=== PATIENT | male | born 1980 | race African-American/Black ===

== ENCOUNTER 2022-10-11 10:05 | Emergency (ER) | payer SELFPAY ==
[2022-10-11] MEDS ORDERED: Aspirin Chewable 81 MG TAB ONE (10:27)
[2022-10-11 10:40] LABS: #Basophils 0.1 thou/uL (0.0-0.2); #Eosinphils 0.2 thou/uL (0.0-0.7); #Monocytes 0.8 thou/uL (0.11-0.59); #Neutrophils 5.3 thou/uL (1.40-6.50); %Basophils 0.7 % (0.0-1.0); %Eosinophils 2.1 % (0.0-10.0); %Lymphocytes 33.3 % (21.0-51.0); %Monocytes 8.5 % (0.0-10.0); %Neutrophils 55.2 % (42.0-75.0); Hemoglobin 14.3 g/dL (14.0-18.0); Mean Corpuscular HGB CONC 32.6 g/dL (32.0-36.0); Mean Corpuscular Hemoglobin 27.8 pg (27.0-31.0); Mean Corpuscular Volume 85.2 fl (78.0-98.0); Mean Platelet Volume 11.7 fL (7.4-10.4); Platelet Count 272 10x3/uL (130-400); RBC Distribution Width 13.2 % (11.5-14.5); Red Blood Cell (RBC) Count 5.14 mill/uL (4.70-6.10); White Blood Cell (WBC) Count 9.5 10x3/uL (4.8-10.8)
[2022-10-11 11:21] LABS: ALT (SGPT) 22 U/L (8-55); AST (SGOT) 23 U/L (5-34); Albumin 4.2 g/dL (3.5-5.0); Alkaline Phosphatase 108 U/L (40-110); Anion Gap 12 mmol/L (10-20); BUN (Urea Nitrogen) 11 mg/dL (8.9-20.6); Bilirubin, Total 0.8 mg/dL (0.2-1.2); Calc. Creatinine Clearance 0 mL/min (70-130); Calcium 9.3 mg/dL (7.6-10.4); Carbon Dioxide 21 mmol/L (22-29); Chloride 106 mmol/L (98-107); Estimated GFR 91; Glucose 124 mg/dL (70-105); Potassium 4.2 mmol/L (3.5-5.1); Protein, Total 7.2 g/dL (6.0-8.3); Sodium 135 mmol/L (136-145)
== END 2022-10-11 12:08 | disposition home or self-care (01) ==
LOC: ERS 10:05
DX: R06.02 Shortness of breath (principal); I50.9 Heart failure, unspecified; F17.210 Nicotine dependence, cigarettes, uncomplicated
CPT/HCPCS: 36415; 71045; 80053; 83735; 83880; 84484; 85025; 93005

== ENCOUNTER 2022-10-14 10:58 | Emergency (ER) | payer SELFPAY ==
[2022-10-14] MEDS ORDERED: Iopamidol-370 76% 500 ML MDV (1 ML CHARGE) ONE (11:14)
[2022-10-14] MEDS ORDERED: Ondansetron PF 4 MG/2 ML Vial ONE (12:08)
[2022-10-14] MEDS ORDERED: Ketorolac Tromethamine 30 MG/ML VIAL ONE (12:08)
[2022-10-14] MEDS ORDERED: Aspirin Chewable 81 MG TAB ONE (12:08)
[2022-10-14 12:24] LABS: Hemoglobin 15.3 g/dL (14.0-18.0); Mean Corpuscular HGB CONC 32.8 g/dL (32.0-36.0); Mean Corpuscular Volume 85.3 fl (78.0-98.0); Mean Platelet Volume 11.8 fL (7.4-10.4); Platelet Count 281 10x3/uL (130-400); RBC Distribution Width 13.5 % (11.5-14.5); Red Blood Cell (RBC) Count 5.46 mill/uL (4.70-6.10); White Blood Cell (WBC) Count 9.4 10x3/uL (4.8-10.8)
[2022-10-14 12:27] LABS: Delete Auto Diff?? YES; Manual Diff?? YES
[2022-10-14 12:49] LABS: CellaVision Operator ID LAB.GE; Eosinophils 2 % (0-10); Lymphocytes 32 % (21-51); Monocytes 5 % (0-10); Neutrophil 50 % (42-75); Platelet Adequacy Comment Platelets Normal; Polychromasia SLIGHT = 2-3 cells HPF (0-2); Reactive Lymphocytes 10 % (0-10); Total Cell Count 100
[2022-10-14 12:58] LABS: ALT (SGPT) 22 U/L (8-55); AST (SGOT) 25 U/L (5-34); Albumin 4.4 g/dL (3.5-5.0); Alkaline Phosphatase 108 U/L (40-110); Anion Gap 9 mmol/L (10-20); BUN (Urea Nitrogen) 10 mg/dL (8.9-20.6); Bilirubin, Total 0.6 mg/dL (0.2-1.2); CK (CPK) 297 U/L (30-200); Calc. Creatinine Clearance 0 mL/min (70-130); Calcium 9.8 mg/dL (7.8-10.44); Carbon Dioxide 29 mmol/L (22-29); Chloride 104 mmol/L (98-107); Estimated GFR 83; Globulin 3.3 g/dL (2.4-3.5); Glucose 81 mg/dL (70-105); Lipase 67 U/L (8-78); Potassium 4.1 mmol/L (3.5-5.1); Protein, Total 7.7 g/dL (6.0-8.3); Sodium 138 mmol/L (136-145)
== END 2022-10-14 13:51 | disposition home or self-care (01) ==
LOC: ERS 10:58
DX: K21.01 Gastro-esophageal reflux disease with esophagitis, with bleeding (principal); I11.0 Hypertensive heart disease with heart failure; I50.9 Heart failure, unspecified; F17.210 Nicotine dependence, cigarettes, uncomplicated; Z79.899 Other long term (current) drug therapy
CPT/HCPCS: 71045; 74177; 80053; 82550; 83690; 84484; 85025; 93005; 96361; 96374; 96375; J1885; J2405; Q9967

== ENCOUNTER 2022-10-16 17:42 | Observation (INO) | payer SELFPAY ==
[2022-10-16] MEDS ORDERED: Nitroglycerin 2% Ointment 1 INCH/1 GM Packet ONE (18:25)
[2022-10-16 18:51] LABS: Hemoglobin 13.6 g/dL (14.0-18.0); Mean Corpuscular HGB CONC 33.1 g/dL (32.0-36.0); Mean Corpuscular Hemoglobin 28.3 pg (27.0-31.0); Mean Corpuscular Volume 85.6 fl (78.0-98.0); Mean Platelet Volume 11.3 fL (7.4-10.4); Platelet Count 263 10x3/uL (130-400); RBC Distribution Width 13.4 % (11.5-14.5); White Blood Cell (WBC) Count 8.7 10x3/uL (4.8-10.8)
[2022-10-16 18:56] LABS: Delete Auto Diff?? YES; Manual Diff?? YES
[2022-10-16 19:19] LABS: CellaVision Operator ID LAB.KB; Eosinophils 1 % (0-10); Hypersegmented Neutrophil SLIGHT (None Seen); Lymphocytes 36 % (21-51); Monocytes 5 % (0-10); Neutrophil 54 % (42-75); Platelet Adequacy Comment Platelets Normal; Polychromasia SLIGHT = 2-3 cells HPF (0-2); Reactive Lymphocytes 3 % (0-10); Total Cell Count 100
[2022-10-16 19:20] LABS: ALT (SGPT) 19 U/L (8-55); AST (SGOT) 24 U/L (5-34); Albumin 4.1 g/dL (3.5-5.0); Alkaline Phosphatase 102 U/L (40-110); Anion Gap 14 mmol/L (10-20); BUN (Urea Nitrogen) 10 mg/dL (8.9-20.6); Bilirubin, Total 0.4 mg/dL (0.2-1.2); Calc. Creatinine Clearance 0 mL/min (70-130); Calcium 9.5 mg/dL (7.8-10.44); Carbon Dioxide 26 mmol/L (22-29); Chloride 105 mmol/L (98-107); Estimated GFR 74; Glucose 109 mg/dL (70-105); Lipase 75 U/L (8-78); Potassium 3.9 mmol/L (3.5-5.1); Protein, Total 7.1 g/dL (6.0-8.3); Sodium 141 mmol/L (136-145)
[2022-10-16] MEDS ORDERED: Senokot S 8.6-50 MG TAB PO PRN (22:06)
[2022-10-16] MEDS ORDERED: Ondansetron ODT 4 MG TAB PO PRN (22:06)
[2022-10-16] MEDS ORDERED: Acetaminophen 325 MG TAB PO PRN (22:06)
[2022-10-17 01:54] LABS: Troponin I 0.013 ng/mL (< 0.028)
[2022-10-17 02:01] VITALS: BMI 25.7
[2022-10-17 04:22] LABS: #Basophils 0.1 thou/uL (0.0-0.2); #Eosinphils 0.2 thou/uL (0.0-0.7); #Monocytes 0.7 thou/uL (0.11-0.59); #Neutrophils 4.4 thou/uL (1.40-6.50); %Basophils 0.7 % (0.0-1.0); %Eosinophils 2.3 % (0.0-10.0); %Lymphocytes 36.9 % (21.0-51.0); %Monocytes 8.6 % (0.0-10.0); %Neutrophils 51.2 % (42.0-75.0); Mean Corpuscular HGB CONC 33.1 g/dL (32.0-36.0); Mean Corpuscular Hemoglobin 28.1 pg (27.0-31.0); Mean Corpuscular Volume 84.9 fl (78.0-98.0); Mean Platelet Volume 11.4 fL (7.4-10.4); Platelet Count 241 10x3/uL (130-400); RBC Distribution Width 13.5 % (11.5-14.5); Red Blood Cell (RBC) Count 4.63 mill/uL (4.70-6.10); White Blood Cell (WBC) Count 8.6 10x3/uL (4.8-10.8)
[2022-10-17 04:55] LABS: Anion Gap 13 mmol/L (10-20); BUN (Urea Nitrogen) 11 mg/dL (8.9-20.6); Calc. Creatinine Clearance 99 mL/min (70-130); Calcium 9.1 mg/dL (7.8-10.44); Carbon Dioxide 25 mmol/L (22-29); Chloride 103 mmol/L (98-107); Estimated GFR 77; Glucose 144 mg/dL (70-105); Potassium 3.5 mmol/L (3.5-5.1); Sodium 137 mmol/L (136-145)
[2022-10-17 05:01] LABS: Troponin I Less than 0.010 ng/mL (< 0.028)
[2022-10-17] MEDS ORDERED: Famotidine/PF 20 mg/2ml Vial SLOW IVP SCH (09:00)
[2022-10-17] MEDS ORDERED: Amlodipine 5 MG TAB PO SCH (09:00)
[2022-10-17] MEDS ORDERED: Famotidine 20 MG TAB PO SCH (09:00)
[2022-10-17] MEDS ORDERED: Lisinopril/Hydrochlorothiazide 10 mg/12.5 mg Tablet PO SCH (09:00)
[2022-10-17 11:47] VITALS: BP 152/86; TEMP 97.8
== END 2022-10-17 15:00 | disposition home or self-care (01) ==
LOC: ERS 17:42 → 2NO 22:06
PROVIDERS: ADMIT Student in an Organized Health Care Education/Training Program; ATTEND Physician Assistant
DX: I10 Essential (primary) hypertension (principal); F17.200 Nicotine dependence, unspecified, uncomplicated; Z79.899 Other long term (current) drug therapy
CPT/HCPCS: 36415; 71045; 80048; 80053; 83690; 83880; 84484; 85025; 93005; 94760; G0378

== ENCOUNTER 2022-10-19 07:05 | Emergency (ER) | payer SELFPAY ==
[2022-10-19] MEDS ORDERED: cloNIDine 0.1 MG TAB ONE (07:33)
== END 2022-10-19 07:44 | disposition home or self-care (01) ==
LOC: ERS 07:05
DX: I11.0 Hypertensive heart disease with heart failure (principal); I50.9 Heart failure, unspecified; F17.210 Nicotine dependence, cigarettes, uncomplicated
CPT/HCPCS: 99283